=== PATIENT | female | born 1970 | race Caucasian/White ===

== ENCOUNTER → 2017-09-09 | Outpatient (CLI) | payer OTHER ==
[~2017-09-09] MED LIST: ASPI325T47 PO
== END | disposition home or self-care (01) ==
LOC: C.PAPS 11:09
PROVIDERS: ATTEND Obstetrics & Gynecology
DX: Z12.4 Encounter for screening for malignant neoplasm of cervix (principal)

== ENCOUNTER 2020-07-26 17:16 | Inpatient (IN) ==
--- OUTSIDE RECORDS SUMMARY | 2020-07-26 17:18 | External Medical Summary | Continuity of Care Document ---
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) Right lower quadrant pain (789.03) (R10.31) Allergies and Adverse Reactions Amoxil TABS (Allergy) Penicillins (Allergy) Bee sting (Allergy) Medications Wellbutrin Emilio AVILEZ Refills: 0 Procedures History of Tonsillectomy Status: Complet ed History of Section Low Transverse Status: Completed History of Hysteroscopy With Endometrial Ablation Status: Completed History of tubal ligation bilateral Stat us: Completed History of wisdom tooth extraction Statu s: Completed History of Laparoscopic Excision Of Ectopic And Status: Completed Salpingectomy History of ankle surgery Status: Complet ed Immunizations Immunizations not documented Family History Sister Family history of malignant neoplasm of cervix (V16.49) (Z80 .49) Status: Active Social History - Smoking Status Smokes tobacco daily Plan of Treatment Planned Observations Planned Goals not documented Results No Known Results Results not documented Encounters Appointment; ROXY MARIE, Ultrasound 22-Dec-2018 15:30 Encounter Diagnosis: Problem not documented Appointment; Princess Stanley M.D. 17-Dec-2018 9:45 Encounter Diagnosis: Problem not documented
[2020-07-26] MEDS ORDERED: MoRPHine SULFATE 4 MG/ML 1 ML CARP\\VIAL IV STA (17:58)
[2020-07-26 18:24] LABS: Basophils # (auto) 0.02 K/uL (0-0.2); Basophils % (auto) 0.1 %; Eosinophils # (auto) 0.13 K/uL (0-0.5); Eosinophils % (auto) 0.7 %; Hematocrit (blood only) 45.7 % (37-47); Hemoglobin 14.8 g/dL (12.0-16.0); Immature Granulocytes # (auto) 0.07 K/uL (0.00-0.02); Immature Granulocytes % (auto) 0.4 %; Lymphocytes % (auto) 14.1 %; Mean Corpuscular Hemoglobin 28.9 pg (25-34); Mean Corpuscular Hgb Conc 32.4 g/dL (32-36); Mean Corpuscular Volume 89.3 fL (80-100); Mean Platelet Volume 10.7 fL (7.4-10.4); Monocytes # (auto) 0.88 K/uL (0.11-0.59); Neutrophils # (auto) 14.16 K/uL (1.4-6.5); Neutrophils % (auto) 79.7 %; Platelet Count 272 K/uL (130-400); RDW Coefficient of Variation 15.7 % (11.5-14.5); RDW Standard Deviation 50.9 fL (36.4-46.3); Red Blood Count 5.12 M/uL (4.2-5.4); White Blood Count 17.76 K/uL (4.8-10.8)
[2020-07-26 18:38] LABS: Albumin Level 3.6 gm/dl (3.4-5.0); BUN Creatinine Ratio 9.1 (10-20); Calcium 9.4 mg/dl (8.5-10.1); Creatinine Clr Calc Pharmacy 112.6 ml/min; Est GFR (Non-African American) 87.2; Potassium 3.7 mmol/L (3.5-5.1)
[2020-07-26 18:40] LABS: Albumin Globulin Ratio 0.8 (0.9-2); Bilirubin,Total 0.5 mg/dl (0.2-1); Globulin 4.5 gm/dl (2.5-4.0); Total Protein 8.1 gm/dl (6.4-8.2)
[2020-07-26 18:47] LABS: Pregnancy Test, Serum Negative (Negative)
[2020-07-26] MEDS ORDERED: ONDANSETRON INJ 2 MG/ML 2 ML VIAL ONE (19:07)
[2020-07-26] MEDS ORDERED: ONDANSETRON INJ 2 MG/ML 2 ML VIAL IV STA (19:11)
--- NOTE | 2020-07-26 19:20 | Ultrasound Report ---
ULTRASOUND OF THE PELVIS CLINICAL HISTORY: Pelvic pain. Reported history of endometrial ablation. COMPARISON STUDY: Pelvic CT dated 04/10/2015. TECHNIQUE: Real-time, grayscale, and color flow sonography of the pelvis is performed both transabdom inally and endovaginally. Images are reviewed in the transverse and longitudinal planes. The endovagi nal examination is performed for better assessment of the adnexa. FINDINGS: Uterus: The uterus is normal in size and echotexture, measuring 9.0 x 4.1 x 4.4 cm. Endometrium: The endometrium is not well visualized. There is trace fluid within the endocervical can al. 2 small cystic foci are located adjacent to the endometrium and measure up to 1.2 cm. Ovaries: The ovaries not visualized on the transabdominal or endovaginal imaging secondary to bowel g as. Pelvis: There is no free fluid in the cul-de-sac. No concerning adnexal lesion is seen. Intraluminal debris is noted in the bladder. IMPRESSION: 1. Intraluminal debris is noted in the bladder. Correlation with urinalysis will be required. 2. There are small cystic foci identified along the course of the endometrium and the endometrium its elf is not well assessed. These findings are likely related to the reported history of endometrial ab lation. 3. The ovaries were not visualized. 4. No adnexal abnormality is identified. ACT 112: Negative or not required by law. Electronically signed by: Mehdi Miranda M.D. 07/26/2020 7:19 PM
--- NOTE | 2020-07-26 19:29 | Emergency Department Note ---
History of Present Illness General Chief complaint: Urinary Symptoms Stated complaint: LOWER ABD PAIN Time Seen by Provider: 07/26/20 17:43 Source: patient Mode of arrival: ambulatory Limitations: no limitations History of Present Illness Provider complaint: Lower abdominal pain Maximum Pain Intensity: 8 This is a 50-year-old female who presents to the ED with a chief complaint that she has not been able to void since 2:00. She also reports that she has some pain with urination. She has had some lower abdominal pain that she describes as cramps for about 4 days. She was seen by her PCP at [facility] earlier today and had a normal urinalysis. The patient denies any fevers, nausea or vomiting. Denies any vaginal discharge or bleeding. Symptoms are worse with movement. Home Medications Home Medications Medication Instructions Recorded Confirmed Type No Known Home Medications 07/26/20 07/26/20 History Allergies Allergy/AdvReac Type Severity Reaction Status Date / Time amoxicillin Allergy Unknown Unknown Verified 07/26/20 18:44 Penicillins AdvReac Mild Nausea/Vomi Verified 07/26/20 18:44 ting Past Med/Surg History Medical History Migraine Family History Other Thyroid disease Social History Smoking Status: Current every day smoker Tobacco Type: Cigarettes Feels Safe at Home: Yes Review of Systems A total of 10 systems reviewed and were otherwise negative Physical Exam Vital Signs Vital Signs - 24 hr 07/26/20 17:18 07/26/20 19:02 Temperature 37.6 C H Temperature Source Oral Pulse Rate 102 H Pulse Rate [Right Finger] 98 H Pulse Rhythm [Right Finger] Regular Pulse Strength [Right Finger] Normal Respiratory Rate 20 20 Respiratory Effort / Characteristics Non-Labored Non-Labored Respiratory Depth Normal Normal Blood Pressure 157/84 H Blood Pressure [Right Arm] 130/80 Blood Pressure Mean 108 Blood Pressure Mean [Right Arm] 96 Blood Pressure Position [Right Arm] Sitting Pulse Oximetry 99 99 Oxygen Delivery Method Room Air Room Air Sepsis Recent Fever Within 48 Hours No Sepsis New/Unexplained Change in Mental Status N/A Sepsis Action Taken by Nursing No Action Required CONSTITUTIONAL/VITAL SIGNS: Reviewed / noted above. GENERAL: Non-toxic in appearance. INTEGUMENTARY: Warm, dry, and [place]. HEAD: Normocephalic. EYES: without scleral icterus or trauma. ENT/OROPHARYNX: clear and moist. LYMPHADENOPATHY/NECK: Is supple without lymphadenopathy or meningismus. RESPIRATORY: Lungs clear and equal. CARDIOVASCULAR: Regular rate and rhythm. GI/ABDOMEN: Soft and tender in the pelvic area bilaterally. No organomegaly or pulsatile mass. No rebound or guarding. Normal bowel sounds. EXTREMITIES: Warm and well perfused. BACK: No CVA tenderness. NEUROLOGICAL: Intact without focal deficits. PSYCHIATRIC: normal affect. MUSCULOSKELETAL: Normally developed with good muscle tone. TRIAGE NURSING DOCUMENTATION REVIEWED. Course Administered Medications Discontinued Medications Ioversol (Ioversol 100ml) 93 ml IV ONCE ONE Stop: 07/26/20 19:43 Last Admin: 07/26/20 19:42 Dose: 93 ml Documented by: [id number] Morphine Sulfate (Morphine Sulfate 4 Mg/Ml 1 Ml Carp\Vial) 4 mg IV NOW STA Stop: 07/26/20 17:59 Last Admin: 07/26/20 18:21 Dose: 4 mg Documented by: [id number] Ondansetron HCl (Ondansetron Inj 2 Mg/Ml 2 Ml Vial) Confirm Administered Dose 4 mg .ROUTE .STK-MED ONE Stop: 07/26/20 19:08 Last Admin: 07/26/20 19:12 Dose: Not Given Documented by: [id number] Ondansetron HCl (Ondansetron Inj 2 Mg/Ml 2 Ml Vial) 4 mg IV NOW STA Stop: 07/26/20 19:12 Last Admin: 07/26/20 19:12 Dose: 4 mg Documented by: [id number] Medical Decision Making Differential Diagnosis Differential considered: pancreatitis, hepatitis, acute cholecystitis, AAA, UTI, pyelonephritis, kidney stones, appendicitis, diverticulitis, shingles, bowel obstruction, mesenteric ischemia, intussusception,hernia Medical Records Attestation: I reviewed the patient's medical records. Home Medications Current Medication List: was personally reviewed by me Laboratory Data Attestation: I reviewed the patient's lab results. Result diagrams: 07/26/20 18:10 07/26/20 18:10 Lab Results 07/26/20 07/26/20 07/26/20 Range/Units 18:10 18:10 18:10 WBC 17.76 H (4.8-10.8) K/uL RBC 5.12 (4.2-5.4) M/uL Hgb 14.8 (12.0-16.0) g/dL Hct 45.7 (37-47) % MCV 89.3 (80-100) fL MCH 28.9 (25-34) pg MCHC 32.4 (32-36) g/dL RDW Std Deviation 50.9 H (36.4-46.3) fL RDW Coeff of Chinmay 15.7 H (11.5-14.5) % Plt Count 272 (130-400) K/uL MPV 10.7 H (7.4-10.4) fL Immature Gran % (Auto) 0.4 % Neut % (Auto) 79.7 % Lymph % (Auto) 14.1 % [place] % (Auto) 5.0 % Eos % (Auto) 0.7 % Baso % (Auto) 0.1 % Neut # (Auto) 14.16 H (1.4-6.5) K/uL Lymph # (Auto) 2.50 (1.2-3.4) K/uL [place] # (Auto) 0.88 H (0.11-0.59) K/uL Eos # (Auto) 0.13 (0-0.5) K/uL Baso # (Auto) 0.02 (0-0.2) K/uL Immature Gran # (Auto) 0.07 H (0.00-0.02) K/uL Sodium 140 (136-145) mmol/L Potassium 3.7 (3.5-5.1) mmol/L Chloride 107 (98-107) mmol/L Carbon Dioxide 29 (21-32) mmol/L Anion Gap 4.0 (3-11) BUN 7 (7-18) mg/dl Creatinine 0.80 (0.6-1.2) mg/dl Est Cr Clr Drug Dosing 112.6 ml/min Est GFR ( Amer) 101.0 Est GFR (Non-Af Amer) 87.2 BUN/Creatinine Ratio 9.1 L (10-20) Glucose 90 (70-99) mg/dl Calcium 9.4 (8.5-10.1) mg/dl Total Bilirubin 0.5 (0.2-1) mg/dl AST 19 (15-37) U/L ALT 28 (12-78) U/L Alkaline Phosphatase 143 H (45-117) U/L Total Protein 8.1 (6.4-8.2) gm/dl Albumin 3.6 (3.4-5.0) gm/dl Globulin 4.5 H (2.5-4.0) gm/dl Albumin/Globulin Ratio 0.8 L (0.9-2) Lipase 78 (73-393) U/L HCG, Qual Negative (Negative) Imaging Data Radiologist's Impression: IMPRESSION: 1. Intraluminal debris is noted in the bladder. Correlation with urinalysis will be required. 2. There are small cystic foci identified along the course of the endometrium and the endometrium itself is not well assessed. These findings are likely related to the reported history of endometrial ablation. 3. The ovaries were not visualized. 4. No adnexal abnormality is identified. IMPRESSION: 1. There is moderate diverticulosis of the sigmoid colon with evidence of acute sigmoid diverticulitis. 2. Punctate foci of extraluminal gas in the left pelvis indicate perforation. No organized fluid collection is seen to suggest abscess. 3. Hepatomegaly and severe hepatic steatosis. 4. Additional findings as above. MDM Narrative Patient presents with lower abdominal pain as described above. CT scan suggests acute diverticulitis with microperforation. I did speak with Dr. Hoover. He recommends IV antibiotics and medicine admission. Surgical service will follow. I spoke with the hospitalist. The patient was treated with IV Zosyn. Nausea vomiting was her only allergy. Impression & Plan Acute diverticulitis Discharge Plan Visit Data Chief Complaint: Urinary Symptoms Stated Complaint: LOWER ABD PAIN ED Provider: Cristobal Gregory Discharge Problem: Acute diverticulitis Patient Disposition: Being Evaluated by Hospitalist Forms Stand Alone Forms: My [place] Prescriptions Prescriptions: No Action No Known Home Medications RF: 0 Referrals Referrals: Tashi Reyes MD [Primary Care Provider] -
[2020-07-26] MEDS ORDERED: IOVERSOL 100ml IV ONE (19:42)
--- NOTE | 2020-07-26 19:45 | CT Scan Report ---
CT SCAN OF THE ABDOMEN AND PELVIS WITH IV CONTRAST CLINICAL HISTORY: Lower abdominal pain. COMPARISON STUDY: Abdominal CT dated 04/10/2015. Pelvic ultrasound dated 07/26/2020. TECHNIQUE: Following the IV administration of 94 cc of Optiray 320, CT scan of the abdomen and pelvi s is performed from the lung bases to the proximal femora. Images are reviewed in the axial, sagittal , and coronal planes. IV contrast was administered without complication. A dose lowering technique wa s utilized adhering to the principles of ALARA. CT DOSE: 1787.99 mGy.cm FINDINGS: Lung bases: The heart is normal in size and without pericardial effusion. The lung bases are clear. Liver: The contrast-enhanced liver is enlarged, measuring 22.2 cm in length. The liver demonstrates d iffusely diminished attenuation consistent with severe hepatic steatosis. Fatty sparing is seen adjac ent to gallbladder fossa. There is no intrahepatic biliary ductal dilatation. The hepatic veins and p ortal veins are patent. Gallbladder: Mildly distended but otherwise normal in appearance. Spleen: Normal in size and attenuation. Pancreas: Mildly atrophic and grossly unremarkable. Adrenal glands: Unremarkable. Kidneys: The contrast enhanced kidneys are normal in size and without hydronephrosis. The kidneys enh ance symmetrically. Abdominal vasculature: The abdominal aorta is normal in course and caliber noting mild atheroscleroti c calcification. Bowel: There is moderate diverticulosis of the sigmoid colon. There is colonic wall thickening with p ericolonic inflammation and trace fluid seen involving the proximal sigmoid consistent with acute div erticulitis. No organized fluid collection is seen to suggest abscess. No bowel obstruction is identi fied. The appendix is well-visualized and normal. Peritoneum: There are punctate foci of extraluminal gas in the left pelvis (axial image #395). No abd ominal ascites is seen. There is a fat-containing umbilical hernia. Lymphadenopathy: None. Pelvic viscera: The bladder is mildly distended but otherwise normal in appearance. The uterus and ad nexa are normal as imaged. Skeletal structures: No lytic or blastic lesions are seen. IMPRESSION: 1. There is moderate diverticulosis of the sigmoid colon with evidence of acute sigmoid diverticuliti s. 2. Punctate foci of extraluminal gas in the left pelvis indicate perforation. No organized fluid jacob ection is seen to suggest abscess. 3. Hepatomegaly and severe hepatic steatosis. 4. Additional findings as above. ACT 112: Negative or not required by law. Electronically signed by: Mehdi Miranda M.D. 07/26/2020 7:44 PM
[2020-07-26] MEDS ORDERED: PIPERACILL/TAZOBAC CONSULT ACTIVE PRN (19:59)
[2020-07-26] MEDS ORDERED: PIPERACILLIN/TAZOBACTAM 4.5 GM/120 ML BAG IV ONE (19:59)
[2020-07-26] MEDS ORDERED: ACETAMINOPHEN 1,000 MG/100 ML VIAL IV STA (20:12)
[2020-07-26 20:20] LABS: Appearance Urine Clear (Clear); Bacteria Urine Automated Negative (Negative); Bilirubin Urine Negative (Negative); Blood Urine Trace (Negative); Cast Urine Automated 0 /lpf (0-5); Color Urine Yellow; Epithelial Cell Urine Auto 0-5 /lpf (0-5); Glucose Urine UA Negative (Negative); Ketones Urine Negative (Negative); Leukocyte Esterase Urine Negative (Negative); Nitrite Urine Negative (Negative); Protein Urine Negative (Negative); RBC Urine Automated 0-4 /hpf (0-4); Urobilinogen Urine Negative (Negative); WBC Urine Automated 0 /hpf (0-5); pH Urine 7.5 (4.5-7.5)
[2020-07-26] MEDS ORDERED: NORMOSOL-R 1,000 ML IV ONE (20:21)
[2020-07-26 20:40] LABS: Magnesium 2.2 mg/dl (1.8-2.4)
[2020-07-26] MEDS ORDERED: KETOROLAC 30 MG/ML VIAL IV ONE (21:03)
[2020-07-26] MEDS ORDERED: KETOROLAC 30 MG/ML VIAL ONE (21:04)
--- NOTE | 2020-07-26 21:54 | History & Physical Report ---
Date of Service July 26, 2020 Assessment & Plan (1) Sepsis: Secondary to complicated diverticulitis Ongoing tobacco abuse Medical telemetry Cultures, Zosyn Bowel rest Surgery consult Re: Complicated diverticulitis (ER provider already in touch with Dr. Hoover.) Outpatient GI consult after 1 month for scheduling of outpatient colonoscopy. Nicotine patch PRN DVT prophylaxis. Lovenox subcu Full code Text document was generated using SnapYeti voice recognition software. It may contain grammatical or spelling errors. Kindly contact undersigned for clarification of any documentation item in question. History of Present Illness Chief Complaint: Abdominal pain Primary Care Provider: Dr. Graham (new PCP as per patient) History obtained from patient and records. Medical history significant for mood disorder, ongoing tobacco abuse. Last confinement 2014 under Orthopedics service for right ankle surgery. 4 days history of crampy lower abdominal pain radiating to the back without fever, chills somewhat worse with motion. Some constipation. May have had intermittent episodes in the last year. No consultations done. Patient seen at PCPs office today. Gynecologic imaging recommended. Patient brought by to ER for worsening symptoms. IV Zosyn given at the ER for complicated diverticulitis. Medical History as above No prior colonoscopies. Surgical History : Tonsillectomy/adenectomy, uterine ablation, sinus section, dental surgery Family History : Pancreatic cancer, diabetes, high blood pressure; no colon cancer Personal/Social history : one pack daily, no EtOH intake, factory employee Allergies Allergy/AdvReac Type Severity Reaction Status Date / Time amoxicillin Allergy Unknown Unknown Verified 07/26/20 18:44 Penicillins AdvReac Mild Nausea/Vomi Verified 07/26/20 18:44 ting Home Medications Home Medications Medication Instructions Recorded Confirmed Type No Known Home Medications 07/26/20 07/26/20 History Past Med/Surg History Medical History Migraine Family History Other Thyroid disease Social History Smoking Status: Current every day smoker Tobacco Type: Cigarettes Cigarettes Per Day: 20; Tobacco Cessation Education Requested by Patient: No Hx Alcohol Use: No Hx Substance Use: No Preferred Language: Yakut Communication Ability: Effective Document Preparation Specialist Required: No Beliefs That Will Affect Care: None Current Living Situation: Spouse Feels Safe at Home: Yes Assistive Devices: Glasses Review of Systems Review of Systems: As per HPI, all 10 systems reviewed, all other ROS negative Physical Exam Physical Exam: GENERAL: uncomfortable, obese, no respiratory distress SKIN: Normal color, warm HEENT: [place] palpebral conjunctivae, no ptosis, dry buccal mucosa NECK : Supple, short neck, no tenderness CHEST : CTA, no tenderness HEART : RRR, no obvious murmurs ABDOMEN: Some distention, hypogastric tenderness EXTREMITIES : Minimal LE swelling, no LE tenderness, no other conspicuous deformities noted NEUROLOGIC : Coherent, no facial asymmetry, no other gross focality Results & Data Results & Data ([facility]) Vital Signs (Past 12 Hours) Vital Signs Temp Pulse Pulse Resp BP BP Pulse Ox 07/26/20 20:08 107 H 20 117/83 97 07/26/20 19:02 98 H 20 130/80 99 07/26/20 17:18 37.6 C H 102 H 20 157/84 H 99 Laboratory Results Laboratory Results WBC 17.76 K/uL (4.8-10.8) H 07/26/20 18:10 RBC 5.12 M/uL (4.2-5.4) 07/26/20 18:10 Hgb 14.8 g/dL (12.0-16.0) 07/26/20 18:10 Hct 45.7 % (37-47) 07/26/20 18:10 MCV 89.3 fL (80-100) 07/26/20 18:10 MCH 28.9 pg (25-34) 07/26/20 18:10 MCHC 32.4 g/dL (32-36) 07/26/20 18:10 RDW Std Deviation 50.9 fL (36.4-46.3) H 07/26/20 18:10 RDW Coeff of Chinmay 15.7 % (11.5-14.5) H 07/26/20 18:10 Plt Count 272 K/uL (130-400) 07/26/20 18:10 MPV 10.7 fL (7.4-10.4) H 07/26/20 18:10 Immature Gran % (Auto) 0.4 % 07/26/20 18:10 Neut % (Auto) 79.7 % 07/26/20 18:10 Lymph % (Auto) 14.1 % 07/26/20 18:10 Burt % (Auto) 5.0 % 07/26/20 18:10 Eos % (Auto) 0.7 % 07/26/20 18:10 Baso % (Auto) 0.1 % 07/26/20 18:10 Neut # (Auto) 14.16 K/uL (1.4-6.5) H 07/26/20 18:10 Lymph # (Auto) 2.50 K/uL (1.2-3.4) 07/26/20 18:10 Burt # (Auto) 0.88 K/uL (0.11-0.59) H 07/26/20 18:10 Eos # (Auto) 0.13 K/uL (0-0.5) 07/26/20 18:10 Baso # (Auto) 0.02 K/uL (0-0.2) 07/26/20 18:10 Immature Gran # (Auto) 0.07 K/uL (0.00-0.02) H 07/26/20 18:10 Sodium 140 mmol/L (136-145) 07/26/20 18:10 Potassium 3.7 mmol/L (3.5-5.1) 07/26/20 18:10 Chloride 107 mmol/L (98-107) 07/26/20 18:10 Carbon Dioxide 29 mmol/L (21-32) 07/26/20 18:10 Anion Gap 4.0 (3-11) 07/26/20 18:10 BUN 7 mg/dl (7-18) 07/26/20 18:10 Creatinine 0.80 mg/dl (0.6-1.2) 07/26/20 18:10 Est Cr Clr Drug Dosing 112.6 ml/min 07/26/20 18:10 Est GFR ( Amer) 101.0 07/26/20 18:10 Est GFR (Non-Af Amer) 87.2 07/26/20 18:10 BUN/Creatinine Ratio 9.1 (10-20) L 07/26/20 18:10 Glucose 90 mg/dl (70-99) 07/26/20 18:10 Lactate 1.1 mmol/L (0.4-2.0) 07/26/20 20:31 Calcium 9.4 mg/dl (8.5-10.1) 07/26/20 18:10 Magnesium 2.2 mg/dl (1.8-2.4) 07/26/20 18:10 Total Bilirubin 0.5 mg/dl (0.2-1) 07/26/20 18:10 AST 19 U/L (15-37) 07/26/20 18:10 ALT 28 U/L (12-78) 07/26/20 18:10 Alkaline Phosphatase 143 U/L (45-117) H 07/26/20 18:10 Total Protein 8.1 gm/dl (6.4-8.2) 07/26/20 18:10 Albumin 3.6 gm/dl (3.4-5.0) 07/26/20 18:10 Globulin 4.5 gm/dl (2.5-4.0) H 07/26/20 18:10 Albumin/Globulin Ratio 0.8 (0.9-2) L 07/26/20 18:10 Lipase 78 U/L (73-393) 07/26/20 18:10 HCG, Qual Negative (Negative) 07/26/20 18:10 Urine Color Yellow 07/26/20 20:00 Urine Appearance Clear (Clear) 07/26/20 20:00 Urine pH 7.5 (4.5-7.5) 07/26/20 20:00 Ur Specific [place] 1.020 (1.000-1.030) 07/26/20 20:00 Urine Protein Negative (Negative) 07/26/20 20:00 Urine Glucose (UA) Negative (Negative) 07/26/20 20:00 Urine Ketones Negative (Negative) 07/26/20 20:00 Urine Blood Trace (Negative) H 07/26/20 20:00 Urine Nitrite Negative (Negative) 07/26/20 20:00 Urine Bilirubin Negative (Negative) 07/26/20 20:00 Urine Urobilinogen Negative (Negative) 07/26/20 20:00 Ur Leukocyte Esterase Negative (Negative) 07/26/20 20:00 Urine WBC (Auto) 0 /hpf (0-5) 07/26/20 20:00 Urine RBC (Auto) 0-4 /hpf (0-4) 07/26/20 20:00 U Hyaline Cast (Auto) 0 /lpf (0-5) 07/26/20 20:00 U Epithel Cells (Auto) 0-5 /lpf (0-5) 07/26/20 20:00 Urine Bacteria (Auto) Negative (Negative) 07/26/20 20:00 POC Ur Test NEG (NEG) 07/26/20 20:[address] abdomen pelvis: 1. There is moderate diverticulosis of the sigmoid colon with evidence of acute sigmoid diverticulitis. 2. Punctate foci of extraluminal gas in the left pelvis indicate perforation. No organized fluid collection is seen to suggest abscess. 3. Hepatomegaly and severe hepatic steatosis. Chest x-ray as per my interpretation no congestion
[2020-07-27] MEDS ORDERED: MoRPHine SULFATE 4 MG/ML 1 ML CARP\\VIAL IV PRN ×2 (00:19→05:31)
[2020-07-27] MEDS ORDERED: LORazepam 0.5 MG/1 ML VIAL IV PRN (00:19)
[2020-07-27] MEDS ORDERED: PROMETHAZINE HCL 12.5 MG in SODIUM CHLORIDE 0.9% 50 ML IV PRN (00:19)
[2020-07-27] MEDS: D5W AND LACTATED RINGERS 1,000 ML IV SCH ×2 (00:56→13:33)
[2020-07-27] MEDS: PIPERACILLIN/TAZOBACTAM 4.5 GM in DEXTROSE 5% 100 ML IV SCH ×3 (02:00→18:45)
[2020-07-27] MEDS ORDERED: KETOROLAC 30 MG/ML VIAL IV STA (05:28)
[2020-07-27] MEDS ORDERED: MoRPHine SULFATE 10 MG/ML CARP/VIAL IV PRN (05:36)
[2020-07-27] MEDS: KETOROLAC TROMETHAMINE 15 MG/ML VIAL IV PRN ×3 (05:41→20:36)
[2020-07-27 07:20] LABS: Basophils # (auto) 0.02 K/uL (0-0.2); Basophils % (auto) 0.2 %; Eosinophils % (auto) 0.8 %; Hematocrit (blood only) 41.8 % (37-47); Hemoglobin 13.5 g/dL (12.0-16.0); Immature Granulocytes # (auto) 0.04 K/uL (0.00-0.02); Immature Granulocytes % (auto) 0.3 %; Lymphocytes # (auto) 1.65 K/uL (1.2-3.4); Lymphocytes % (auto) 12.8 %; Mean Corpuscular Hemoglobin 28.7 pg (25-34); Mean Corpuscular Hgb Conc 32.3 g/dL (32-36); Mean Corpuscular Volume 88.7 fL (80-100); Mean Platelet Volume 10.6 fL (7.4-10.4); Monocytes # (auto) 0.84 K/uL (0.11-0.59); Monocytes % (auto) 6.5 %; Neutrophils # (auto) 10.23 K/uL (1.4-6.5); Neutrophils % (auto) 79.4 %; Platelet Count 226 K/uL (130-400); RDW Coefficient of Variation 15.7 % (11.5-14.5); RDW Standard Deviation 50.8 fL (36.4-46.3); Red Blood Count 4.71 M/uL (4.2-5.4); White Blood Count 12.88 K/uL (4.8-10.8)
[2020-07-27 07:31] LABS: INR 1.1 (0.9-1.1); Prothrombin Time 11.1 Seconds (9.0-12.0)
[2020-07-27] MEDS: ACETAMINOPHEN 1,000 MG/100 ML VIAL IV PRN ×2 (07:31→17:04)
--- NOTE | 2020-07-27 07:40 | XRay Report ---
XR chest 1V portable HISTORY: sepsis COMPARISON: Chest 12/28/2014. FINDINGS: The lungs are clear. Cardiac silhouette is normal in size. No pleural effusions. No pneumot horax. IMPRESSION: No acute process. ACT 112: Negative or not required by law. Electronically signed by: Alfie Hobbs M.D. 07/27/2020 7:39 AM
[2020-07-27 07:45] LABS: BUN Creatinine Ratio 8.7 (10-20); Creatinine Clr Calc Pharmacy 109.6 ml/min; Est GFR (African American) 99.5; Est GFR (Non-African American) 85.9; Potassium 3.6 mmol/L (3.5-5.1)
[2020-07-27] MEDS: ENOXAPARIN INJ 40 MG/0.4 ML SYR SQ SCH (08:31)
--- NOTE | 2020-07-27 11:37 | Surgery Consultation ---
Date of Consultation July 27, 2020 Assessment & Plan (1) Acute diverticulitis: This patient's exam and CAT scan are consistent with acute diverticulitis of the sigmoid colon. There are small areas of extraluminal air including probable microperforation but there is no evidence of abscess. I agree with conservative management with bowel rest and intravenous antibiotics. She has no evidence of diffuse peritonitis or free rupture. I do not feel there is any need for immediate surgical intervention. The ideal situation would be to get her through this acute episode and then for her to have a colonoscopy in 2 to 3 months. She could then have a discussion about elective resection. History of Present Illness Reason for Consultation: Lower abdominal pain Requesting Physician: Gabriela Swann MD Attending Physician: Gabriela Swann MD History of Present Illness To see I have been asked by Dr. Swann this 50-year-old female who presented to the emergency room with a complaint of lower abdominal pain. The patient states that for the last year she has had intermittent abdominal discomfort that she describes in the suprapubic area and across her lower abdomen while most of the time the right side predominates over the left. The pain was usually self- limited lasting for approximately an hour. Over the last 4 days however the severity of the pain escalated to a level much more severe than her previous episodes. She has not had any associated nausea or vomiting. She denies fever. Her bowels have been moving although she frequently requires stool softeners or laxatives for help. There is been no melena or hematochezia. She denies dysuria, hematuria and pneumaturia. She states that she was admitted about 4 years ago overnight for an episode of diverticulitis. She has never had a colonoscopy. There is no family history of lower GI disorders. Allergies Allergy/AdvReac Type Severity Reaction Status Date / Time amoxicillin Allergy Unknown Unknown Verified 07/26/20 18:44 Penicillins AdvReac Mild Nausea/Vomi Verified 07/26/20 18:44 ting Home Medications Home Medications Medication Instructions Recorded Confirmed Type No Known Home Medications 07/26/20 07/26/20 History Patient History Medical History (Updated 07/27/20 @ 05:42 by Jeremy Pandya MD) Migraine Surgical History (Updated 07/27/20 @ 11:36 by Jovany Tovar MD) deliv due to previous difficult deliv, deliv, curr hospitaliz X 2 Status post ORIF of fracture of ankle right Family History Other Thyroid disease Social History Smoking Status: Current every day smoker Tobacco Type: Cigarettes Cigarettes Per Day: 20; Tobacco Cessation Education Requested by Patient: No Hx Alcohol Use: No Hx Substance Use: No Preferred Language: Wolof Communication Ability: Effective Hplc Chemist Required: No Beliefs That Will Affect Care: None Current Living Situation: Spouse Feels Safe at Home: Yes Assistive Devices: Glasses Review of Systems Review of Systems: All systems reviewed & are unremarkable except as noted in HPI & below Physical Exam Constitutional: no acute distress Neck: trachea midline Respiratory: normal respiratory effort, lungs clear to auscultation Cardiovascular: Rate/Rhythm: regular rate and regular rhythm Gastrointestinal (Abdomen): Inspection/Auscultation: normal bowel sounds; abdomen not distended Percussion/Palpation: + abdomen tender (Tender to moderate palpation in the lower midline above the pubic bone and mostly to the left with some less significant tenderness towards the right side) and abdomen soft Skin: no rashes, warm and dry Lymphatic: no cervical lymphadenopathy Results & Data ([facility]) Vital Signs (Past 12 Hours) Vital Signs Temp Pulse Pulse Resp BP Pulse Ox 07/27/20 07:40 75 07/27/20 07:17 36.7 C 82 18 93/63 L 95 07/27/20 03:00 36.5 C 94 H 20 92/57 L 96 07/27/20 01:19 96 H 07/27/20 00:00 36.8 C 97 H 18 95/56 L 99 07/26/20 23:40 36.9 C Laboratory Results 07/27/20 07/27/20 07/27/20 Range/Units 06:50 06:50 06:50 WBC 12.88 H (4.8-10.8) K/uL RBC 4.71 (4.2-5.4) M/uL Hgb 13.5 (12.0-16.0) g/dL Hct 41.8 (37-47) % MCV 88.7 (80-100) fL MCH 28.7 (25-34) pg MCHC 32.3 (32-36) g/dL RDW Std Deviation 50.8 H (36.4-46.3) fL RDW Coeff of Chinmay 15.7 H (11.5-14.5) % Plt Count 226 (130-400) K/uL MPV 10.6 H (7.4-10.4) fL Immature Gran % (Auto) 0.3 % Neut % (Auto) 79.4 % Lymph % (Auto) 12.8 % Owen % (Auto) 6.5 % Eos % (Auto) 0.8 % Baso % (Auto) 0.2 % Neut # (Auto) 10.23 H (1.4-6.5) K/uL Lymph # (Auto) 1.65 (1.2-3.4) K/uL Owen # (Auto) 0.84 H (0.11-0.59) K/uL Eos # (Auto) 0.10 (0-0.5) K/uL Baso # (Auto) 0.02 (0-0.2) K/uL Immature Gran # (Auto) 0.04 H (0.00-0.02) K/uL PT 11.1 (9.0-12.0) Seconds INR 1.1 (0.9-1.1) Sodium 140 (136-145) mmol/L Potassium 3.6 (3.5-5.1) mmol/L Chloride 108 H (98-107) mmol/L Carbon Dioxide 26 (21-32) mmol/L Anion Gap 6.0 (3-11) BUN 7 (7-18) mg/dl Creatinine 0.81 (0.6-1.2) mg/dl Est Cr Clr Drug Dosing 109.6 ml/min Est GFR ( Amer) 99.5 Est GFR (Non-Af Amer) 85.9 BUN/Creatinine Ratio 8.7 L (10-20) Glucose 111 H (70-99) mg/dl Lactate (0.4-2.0) mmol/L Calcium 9.0 (8.5-10.1) mg/dl Magnesium (1.8-2.4) mg/dl Total Bilirubin (0.2-1) mg/dl AST (15-37) U/L ALT (12-78) U/L Alkaline Phosphatase (45-117) U/L Total Protein (6.4-8.2) gm/dl Albumin (3.4-5.0) gm/dl Globulin (2.5-4.0) gm/dl Albumin/Globulin Ratio (0.9-2) Lipase (73-393) U/L HCG, Qual (Negative) Urine Color Urine Appearance (Clear) Urine pH (4.5-7.5) Ur Specific [place] (1.000-1.030) Urine Protein (Negative) Urine Glucose (UA) (Negative) Urine Ketones (Negative) Urine Blood (Negative) Urine Nitrite (Negative) Urine Bilirubin (Negative) Urine Urobilinogen (Negative) Ur Leukocyte Esterase (Negative) Urine WBC (Auto) (0-5) /hpf Urine RBC (Auto) (0-4) /hpf U Hyaline Cast (Auto) (0-5) /lpf U Epithel Cells (Auto) (0-5) /lpf Urine Bacteria (Auto) (Negative) POC Ur Test (NEG) 07/26/20 07/26/20 07/26/20 Range/Units 20:31 20:00 20:00 WBC (4.8-10.8) K/uL RBC (4.2-5.4) M/uL Hgb (12.0-16.0) g/dL Hct (37-47) % MCV (80-100) fL MCH (25-34) pg MCHC (32-36) g/dL RDW Std Deviation (36.4-46.3) fL RDW Coeff of Chinmay (11.5-14.5) % Plt Count (130-400) K/uL MPV (7.4-10.4) fL Immature Gran % (Auto) % Neut % (Auto) % Lymph % (Auto) % Owen % (Auto) % Eos % (Auto) % Baso % (Auto) % Neut # (Auto) (1.4-6.5) K/uL Lymph # (Auto) (1.2-3.4) K/uL Owen # (Auto) (0.11-0.59) K/uL Eos # (Auto) (0-0.5) K/uL Baso # (Auto) (0-0.2) K/uL Immature Gran # (Auto) (0.00-0.02) K/uL PT (9.0-12.0) Seconds INR (0.9-1.1) Sodium (136-145) mmol/L Potassium (3.5-5.1) mmol/L Chloride (98-107) mmol/L Carbon Dioxide (21-32) mmol/L Anion Gap (3-11) BUN (7-18) mg/dl Creatinine (0.6-1.2) mg/dl Est Cr Clr Drug Dosing ml/min Est GFR ( Amer) Est GFR (Non-Af Amer) BUN/Creatinine Ratio (10-20) Glucose (70-99) mg/dl Lactate 1.1 (0.4-2.0) mmol/L Calcium (8.5-10.1) mg/dl Magnesium (1.8-2.4) mg/dl Total Bilirubin (0.2-1) mg/dl AST (15-37) U/L ALT (12-78) U/L Alkaline Phosphatase (45-117) U/L Total Protein (6.4-8.2) gm/dl Albumin (3.4-5.0) gm/dl Globulin (2.5-4.0) gm/dl Albumin/Globulin Ratio (0.9-2) Lipase (73-393) U/L HCG, Qual (Negative) Urine Color Yellow Urine Appearance Clear (Clear) Urine pH 7.5 (4.5-7.5) Ur Specific [place] 1.020 (1.000-1.030) Urine Protein Negative (Negative) Urine Glucose (UA) Negative (Negative) Urine Ketones Negative (Negative) Urine Blood Trace H (Negative) Urine Nitrite Negative (Negative) Urine Bilirubin Negative (Negative) Urine Urobilinogen Negative (Negative) Ur Leukocyte Esterase Negative (Negative) Urine WBC (Auto) 0 (0-5) /hpf Urine RBC (Auto) 0-4 (0-4) /hpf U Hyaline Cast (Auto) 0 (0-5) /lpf U Epithel Cells (Auto) 0-5 (0-5) /lpf Urine Bacteria (Auto) Negative (Negative) POC Ur Test NEG (NEG) 07/26/20 07/26/20 07/26/20 Range/Units 18:10 18:10 18:10 WBC 17.76 H (4.8-10.8) K/uL RBC 5.12 (4.2-5.4) M/uL Hgb 14.8 (12.0-16.0) g/dL Hct 45.7 (37-47) % MCV 89.3 (80-100) fL MCH 28.9 (25-34) pg MCHC 32.4 (32-36) g/dL RDW Std Deviation 50.9 H (36.4-46.3) fL RDW Coeff of Chinmay 15.7 H (11.5-14.5) % Plt Count 272 (130-400) K/uL MPV 10.7 H (7.4-10.4) fL Immature Gran % (Auto) 0.4 % Neut % (Auto) 79.7 % Lymph % (Auto) 14.1 % Owen % (Auto) 5.0 % Eos % (Auto) 0.7 % Baso % (Auto) 0.1 % Neut # (Auto) 14.16 H (1.4-6.5) K/uL Lymph # (Auto) 2.50 (1.2-3.4) K/uL Owen # (Auto) 0.88 H (0.11-0.59) K/uL Eos # (Auto) 0.13 (0-0.5) K/uL Baso # (Auto) 0.02 (0-0.2) K/uL Immature Gran # (Auto) 0.07 H (0.00-0.02) K/uL PT (9.0-12.0) Seconds INR (0.9-1.1) Sodium 140 (136-145) mmol/L Potassium 3.7 (3.5-5.1) mmol/L Chloride 107 (98-107) mmol/L Carbon Dioxide 29 (21-32) mmol/L Anion Gap 4.0 (3-11) BUN 7 (7-18) mg/dl Creatinine 0.80 (0.6-1.2) mg/dl Est Cr Clr Drug Dosing 112.6 ml/min Est GFR ( Amer) 101.0 Est GFR (Non-Af Amer) 87.2 BUN/Creatinine Ratio 9.1 L (10-20) Glucose 90 (70-99) mg/dl Lactate (0.4-2.0) mmol/L Calcium 9.4 (8.5-10.1) mg/dl Magnesium 2.2 (1.8-2.4) mg/dl Total Bilirubin 0.5 (0.2-1) mg/dl AST 19 (15-37) U/L ALT 28 (12-78) U/L Alkaline Phosphatase 143 H (45-117) U/L Total Protein 8.1 (6.4-8.2) gm/dl Albumin 3.6 (3.4-5.0) gm/dl Globulin 4.5 H (2.5-4.0) gm/dl Albumin/Globulin Ratio 0.8 L (0.9-2) Lipase 78 (73-393) U/L HCG, Qual Negative (Negative) Urine Color Urine Appearance (Clear) Urine pH (4.5-7.5) Ur Specific [place] (1.000-1.030) Urine Protein (Negative) Urine Glucose (UA) (Negative) Urine Ketones (Negative) Urine Blood (Negative) Urine Nitrite (Negative) Urine Bilirubin (Negative) Urine Urobilinogen (Negative) Ur Leukocyte Esterase (Negative) Urine WBC (Auto) (0-5) /hpf Urine RBC (Auto) (0-4) /hpf U Hyaline Cast (Auto) (0-5) /lpf U Epithel Cells (Auto) (0-5) /lpf Urine Bacteria (Auto) (Negative) POC Ur Test (NEG) Diagnostic Findings CT SCAN OF THE ABDOMEN AND PELVIS WITH IV CONTRAST CLINICAL HISTORY: Lower abdominal pain. COMPARISON STUDY: Abdominal CT dated 04/10/2015. Pelvic ultrasound dated 07/26/2020. TECHNIQUE: Following the IV administration of 94 cc of Optiray 320, CT scan of the abdomen and pelvis is performed from the lung bases to the proximal femora. Images are reviewed in the axial, sagittal, and coronal planes. IV contrast was administered without complication. A dose lowering technique was utilized adhering to the principles of ALARA. CT DOSE: 1787.99 mGy.cm FINDINGS: Lung bases: The heart is normal in size and without pericardial effusion. The lung bases are clear. Liver: The contrast-enhanced liver is enlarged, measuring 22.2 cm in length. The liver demonstrates diffusely diminished attenuation consistent with severe hepatic steatosis. Fatty sparing is seen adjacent to gallbladder fossa. There is no intrahepatic biliary ductal dilatation. The hepatic veins and portal veins are patent. Gallbladder: Mildly distended but otherwise normal in appearance. Spleen: Normal in size and attenuation. Pancreas: Mildly atrophic and grossly unremarkable. Adrenal glands: Unremarkable. Kidneys: The contrast enhanced kidneys are normal in size and without hydronephrosis. The kidneys enhance symmetrically. Abdominal vasculature: The abdominal aorta is normal in course and caliber noting mild atherosclerotic calcification. Bowel: There is moderate diverticulosis of the sigmoid colon. There is colonic wall thickening with pericolonic inflammation and trace fluid seen involving the proximal sigmoid consistent with acute diverticulitis. No organized fluid collection is seen to suggest abscess. No bowel obstruction is identified. The a ppendix is well-visualized and normal. Peritoneum: There are punctate foci of extraluminal gas in the left pelvis (axial image #395). No abdominal ascites is seen. There is a fat-containing umbilical hernia. Lymphadenopathy: None. Pelvic viscera: The bladder is mildly distended but otherwise normal in appearance. The uterus and adnexa are normal as imaged. Skeletal structures: No lytic or blastic lesions are seen. IMPRESSION: 1. There is moderate diverticulosis of the sigmoid colon with evidence of acute sigmoid diverticulitis. 2. Punctate foci of extraluminal gas in the left pelvis indicate perforation. No organized fluid collection is seen to suggest abscess. 3. Hepatomegaly and severe hepatic steatosis. 4. Additional findings as above. ULTRASOUND OF THE PELVIS CLINICAL HISTORY: Pelvic pain. Reported history of endometrial ablation. COMPARISON STUDY: Pelvic CT dated 04/10/2015. TECHNIQUE: Real-time, grayscale, and color flow sonography of the pelvis is performed both transabdominally and endovaginally. Images are reviewed in the transverse and longitudinal planes. The endovaginal examination is performed for better assessment of the adnexa. FINDINGS: Uterus: The uterus is normal in size and echotexture, measuring 9.0 x 4.1 x 4.4 cm. Endometrium: The endometrium is not well visualized. There is trace fluid within the endocervical canal. 2 small cystic foci are located adjacent to the endometrium and measure up to 1.2 cm. Ovaries: The ovaries not visualized on the transabdominal or endovaginal imaging secondary to bowel gas. Pelvis: There is no free fluid in the cul-de-sac. No concerning adnexal lesion is seen. Intraluminal debris is noted in the bladder. IMPRESSION: 1. Intraluminal debris is noted in the bladder. Correlation with urinalysis will be required. 2. There are small cystic foci identified along the course of the endometrium and the endometrium itself is not well assessed. These findings are likely related to the reported history of endometrial ablation. 3. The ovaries were not visualized. 4. No adnexal abnormality is identified. XR chest 1V portable HISTORY: sepsis COMPARISON: Chest 12/28/2014. FINDINGS: The lungs are clear. Cardiac silhouette is normal in size. No pleural effusions. No pneumothorax. IMPRESSION: No acute process.
--- NOTE | 2020-07-27 12:18 | Hospitalist Progress Note ---
Date of Service July 27, 2020 Assessment & Plan (1) Sepsis: Secondary to complicated diverticulitis Ongoing tobacco use Continue zosyn Leukocytosis improving Blood cultures in lab Continue IVF Bowel rest. Continue NPO but allow ice chips and sips if tolerated Surgery evaluation noted Imaging studies reviewed. Counselled patient on need to quit smoking Nicotine patch prn Will need GI follow up outpatient DVT ppx- lovenox sq Admission and Anticipated Discharge Date Admission Date: July 26, 2020 Subjective Patient seen and examined Reports abd pain still present, crampy but much improved about 4-5/10 No nausea, vomiting, diarrhea Reports feeling hungry and will like diet Denied any chest pain, palpitation, SOB, cough Denied any dysuria, freq, urgency, hematuria Physical Exam Constitutional: + well hydrated; no acute distress Eyes: PERRL, conjunctivae normal, anicteric sclerae ENMT: external ear and nose normal, oropharynx normal Respiratory: normal respiratory effort, lungs clear to auscultation Cardiovascular: RRR, no murmur, no edema Gastrointestinal (Abdomen): Inspection/Auscultation: abdomen normal to inspection and normal bowel sounds; abdomen not distended Percussion/Palpation: abdomen soft; no guarding and abdomen not rigid LLQ and suprapubic tenderness Musculoskeletal: no cyanosis or clubbing, extremities motor strength 5/5 Neurologic: PERRL, EOMI, accommodation nl, no face palsy, no dysarthria Psychiatric: A+Ox3, euthymic affect Results & Data Results & Data ([facility]) Vital Signs (Past 12 Hours) Vital Signs Temp Pulse Pulse Resp BP Pulse Ox 07/27/20 11:32 36.7 C 81 18 102/68 96 07/27/20 07:40 75 07/27/20 07:17 36.7 C 82 18 93/63 L 95 07/27/20 03:00 36.5 C 94 H 20 92/57 L 96 07/27/20 01:19 96 H Laboratory Results Laboratory Results - last 24 hr 07/26/20 07/26/20 07/26/20 18:10 18:10 18:10 WBC 17.76 H RBC 5.12 Hgb 14.8 Hct 45.7 MCV 89.3 MCH 28.9 MCHC 32.4 RDW Std Deviation 50.9 H RDW Coeff of Chinmay 15.7 H Plt Count 272 MPV 10.7 H Immature Gran % (Auto) 0.4 Neut % (Auto) 79.7 Lymph % (Auto) 14.1 [place] % (Auto) 5.0 Eos % (Auto) 0.7 Baso % (Auto) 0.1 Neut # (Auto) 14.16 H Lymph # (Auto) 2.50 [place] # (Auto) 0.88 H Eos # (Auto) 0.13 Baso # (Auto) 0.02 Immature Gran # (Auto) 0.07 H PT INR Sodium 140 Potassium 3.7 Chloride 107 Carbon Dioxide 29 Anion Gap 4.0 BUN 7 Creatinine 0.80 Est Cr Clr Drug Dosing 112.6 Est GFR ( Amer) 101.0 Est GFR (Non-Af Amer) 87.2 BUN/Creatinine Ratio 9.1 L Glucose 90 Lactate Calcium 9.4 Magnesium 2.2 Total Bilirubin 0.5 AST 19 ALT 28 Alkaline Phosphatase 143 H Total Protein 8.1 Albumin 3.6 Globulin 4.5 H Albumin/Globulin Ratio 0.8 L Lipase 78 HCG, Qual Negative Urine Color Urine Appearance Urine pH Ur Specific [place] Urine Protein Urine Glucose (UA) Urine Ketones Urine Blood Urine Nitrite Urine Bilirubin Urine Urobilinogen Ur Leukocyte Esterase Urine WBC (Auto) Urine RBC (Auto) U Hyaline Cast (Auto) U Epithel Cells (Auto) Urine Bacteria (Auto) POC Ur Test 07/26/20 07/26/20 07/26/20 20:00 20:00 20:31 WBC RBC Hgb Hct MCV MCH MCHC RDW Std Deviation RDW Coeff of Chinmay Plt Count MPV Immature Gran % (Auto) Neut % (Auto) Lymph % (Auto) [place] % (Auto) Eos % (Auto) Baso % (Auto) Neut # (Auto) Lymph # (Auto) [place] # (Auto) Eos # (Auto) Baso # (Auto) Immature Gran # (Auto) PT INR Sodium Potassium Chloride Carbon Dioxide Anion Gap BUN Creatinine Est Cr Clr Drug Dosing Est GFR ( Amer) Est GFR (Non-Af Amer) BUN/Creatinine Ratio Glucose Lactate 1.1 Calcium Magnesium Total Bilirubin AST ALT Alkaline Phosphatase Total Protein Albumin Globulin Albumin/Globulin Ratio Lipase HCG, Qual Urine Color Yellow Urine Appearance Clear Urine pH 7.5 Ur Specific [place] 1.020 Urine Protein Negative Urine Glucose (UA) Negative Urine Ketones Negative Urine Blood Trace H Urine Nitrite Negative Urine Bilirubin Negative Urine Urobilinogen Negative Ur Leukocyte Esterase Negative Urine WBC (Auto) 0 Urine RBC (Auto) 0-4 U Hyaline Cast (Auto) 0 U Epithel Cells (Auto) 0-5 Urine Bacteria (Auto) Negative POC Ur Test NEG 07/27/20 07/27/20 07/27/20 06:50 06:50 06:50 WBC 12.88 H RBC 4.71 Hgb 13.5 Hct 41.8 MCV 88.7 MCH 28.7 MCHC 32.3 RDW Std Deviation 50.8 H RDW Coeff of Chinmay 15.7 H Plt Count 226 MPV 10.6 H Immature Gran % (Auto) 0.3 Neut % (Auto) 79.4 Lymph % (Auto) 12.8 [place] % (Auto) 6.5 Eos % (Auto) 0.8 Baso % (Auto) 0.2 Neut # (Auto) 10.23 H Lymph # (Auto) 1.65 [place] # (Auto) 0.84 H Eos # (Auto) 0.10 Baso # (Auto) 0.02 Immature Gran # (Auto) 0.04 H PT 11.1 INR 1.1 Sodium 140 Potassium 3.6 Chloride 108 H Carbon Dioxide 26 Anion Gap 6.0 BUN 7 Creatinine 0.81 Est Cr Clr Drug Dosing 109.6 Est GFR ( Amer) 99.5 Est GFR (Non-Af Amer) 85.9 BUN/Creatinine Ratio 8.7 L Glucose 111 H Lactate Calcium 9.0 Magnesium Total Bilirubin AST ALT Alkaline Phosphatase Total Protein Albumin Globulin Albumin/Globulin Ratio Lipase HCG, Qual Urine Color Urine Appearance Urine pH Ur Specific [place] Urine Protein Urine Glucose (UA) Urine Ketones Urine Blood Urine Nitrite Urine Bilirubin Urine Urobilinogen Ur Leukocyte Esterase Urine WBC (Auto) Urine RBC (Auto) U Hyaline Cast (Auto) U Epithel Cells (Auto) Urine Bacteria (Auto) POC Ur Test Diagnostic Findings CT Abd/Pelvis: FINDINGS: Lung bases: The heart is normal in size and without pericardial effusion. The lung bases are clear. Liver: The contrast-enhanced liver is enlarged, measuring 22.2 cm in length. The liver demonstrates diffusely diminished attenuation consistent with severe hepatic steatosis. Fatty sparing is seen adjacent to gallbladder fossa. There is no intrahepatic biliary ductal dilatation. The hepatic veins and portal veins are patent. Gallbladder: Mildly distended but otherwise normal in appearance. Spleen: Normal in size and attenuation. Pancreas: Mildly atrophic and grossly unremarkable. Adrenal glands: Unremarkable. Kidneys: The contrast enhanced kidneys are normal in size and without hydronephrosis. The kidneys enhance symmetrically. Abdominal vasculature: The abdominal aorta is normal in course and caliber noting mild atherosclerotic calcification. Bowel: There is moderate diverticulosis of the sigmoid colon. There is colonic wall thickening with pericolonic inflammation and trace fluid seen involving the proximal sigmoid consistent with acute diverticulitis. No organized fluid collection is seen to suggest abscess. No bowel obstruction is identified. The appendix is well-visualized and normal. Peritoneum: There are punctate foci of extraluminal gas in the left pelvis (axial image #395). No abdominal ascites is seen. There is a fat-containing umbilical hernia. Lymphadenopathy: None. Pelvic viscera: The bladder is mildly distended but otherwise normal in appearance. The uterus and adnexa are normal as imaged. Skeletal structures: No lytic or blastic lesions are seen. IMPRESSION: 1. There is moderate diverticulosis of the sigmoid colon with evidence of acute sigmoid diverticulitis. 2. Punctate foci of extraluminal gas in the left pelvis indicate perforation. No organized fluid collection is seen to suggest abscess. 3. Hepatomegaly and severe hepatic steatosis. 4. Additional findings as above.
[2020-07-28] MEDS: D5W AND LACTATED RINGERS 1,000 ML IV SCH ×2 (02:41→17:01)
[2020-07-28] MEDS: PIPERACILLIN/TAZOBACTAM 4.5 GM in DEXTROSE 5% 100 ML IV SCH ×3 (02:41→18:06)
[2020-07-28] MEDS: KETOROLAC TROMETHAMINE 15 MG/ML VIAL IV PRN ×3 (02:43→21:52)
[2020-07-28 05:59] LABS: Hematocrit (blood only) 39.6 % (37-47); Hemoglobin 12.8 g/dL (12.0-16.0); Mean Corpuscular Hemoglobin 28.5 pg (25-34); Mean Corpuscular Hgb Conc 32.3 g/dL (32-36); Mean Corpuscular Volume 88.2 fL (80-100); Mean Platelet Volume 10.7 fL (7.4-10.4); Platelet Count 236 K/uL (130-400); RDW Coefficient of Variation 15.6 % (11.5-14.5); RDW Standard Deviation 50.3 fL (36.4-46.3); Red Blood Count 4.49 M/uL (4.2-5.4); White Blood Count 14.05 K/uL (4.8-10.8)
[2020-07-28 06:25] LABS: BUN Creatinine Ratio 10.6 (10-20); Calcium 9.2 mg/dl (8.5-10.1); Creatinine Clr Calc Pharmacy 119.8 ml/min; Est GFR (African American) 109.2; Est GFR (Non-African American) 94.3; Potassium 3.7 mmol/L (3.5-5.1)
[2020-07-28] MEDS: ENOXAPARIN INJ 40 MG/0.4 ML SYR SQ SCH (09:23)
--- NOTE | 2020-07-28 10:45 | Surgery Progress Note ---
Date of Service July 28, 2020 Assessment & Plan (1) Acute diverticulitis: Clinically improved today Recommend advancing to full liquid diet Consider continuing IV antibiotics for another day Will need colonoscopy in about 2 months after discharge No evidence of peritonitis or need for surgical intervention immediately. Admission and Anticipated Discharge Date Admission Date: July 26, 2020 Subjective Feels much better today Pain has decreased dramatically Denies nausea and vomiting Physical Exam Gastrointestinal (Abdomen): Inspection/Auscultation: normal bowel sounds; abdomen not distended Percussion/Palpation: + abdomen tender (Lower abdomen above the pubic bone and just to the left although it is much improved compared to yesterday) and abdomen soft Results & Data ([facility]) Vital Signs (Past 12 Hours) Vital Signs Temp Pulse Pulse Resp BP Pulse Ox 07/28/20 07:33 80 07/28/20 07:14 36.9 C 84 18 96/65 L 97 07/28/20 04:52 91 H 07/28/20 03:53 37.1 C 94 H 20 105/69 96 07/27/20 23:00 36.5 C 93 H 20 106/72 96 Laboratory Results 07/28/20 07/28/20 Range/Units 05:36 05:36 WBC 14.05 H (4.8-10.8) K/uL RBC 4.49 (4.2-5.4) M/uL Hgb 12.8 (12.0-16.0) g/dL Hct 39.6 (37-47) % MCV 88.2 (80-100) fL MCH 28.5 (25-34) pg MCHC 32.3 (32-36) g/dL RDW Std Deviation 50.3 H (36.4-46.3) fL RDW Coeff of Chinmay 15.6 H (11.5-14.5) % Plt Count 236 (130-400) K/uL MPV 10.7 H (7.4-10.4) fL Sodium 140 (136-145) mmol/L Potassium 3.7 (3.5-5.1) mmol/L Chloride 109 H (98-107) mmol/L Carbon Dioxide 26 (21-32) mmol/L Anion Gap 6.0 (3-11) BUN 8 (7-18) mg/dl Creatinine 0.75 (0.6-1.2) mg/dl Est Cr Clr Drug Dosing 119.8 ml/min Est GFR ( Amer) 109.2 Est GFR (Non-Af Amer) 94.3 BUN/Creatinine Ratio 10.6 (10-20) Glucose 112 H (70-99) mg/dl Calcium 9.2 (8.5-10.1) mg/dl
--- NOTE | 2020-07-28 11:16 | Hospitalist Progress Note ---
Date of Service July 28, 2020 Assessment & Plan (1) Sepsis: Secondary to complicated diverticulitis Improving Continue zosyn WBC increased from 12 -14 today Patient asking for food and will like to be discharged I discussed with patient that it won't be prudent to discharge at this point Blood cultures negative so far Continue IVF Considering significant improvement in abd pain, will start soft diet and monitor tolerance Counselled patient on need to quit smoking Nicotine patch prn Will need GI follow up outpatient DVT ppx- lovenox sq Admission and Anticipated Discharge Date Admission Date: July 26, 2020 Subjective Patient seen and examined. Reports significant improvement in abd pain. Denied nausea, vomiting Denied fevers, chills Denied chest pain, SOB, cough Denied dysuria,freq, urgency, hematuria Has a bowel movement earlier, soft brown Physical Exam Constitutional: + well hydrated; no acute distress Eyes: PERRL, conjunctivae normal, anicteric sclerae ENMT: external ear and nose normal, oropharynx normal Respiratory: normal respiratory effort, lungs clear to auscultation Cardiovascular: RRR, no murmur, no edema Gastrointestinal (Abdomen): Inspection/Auscultation: abdomen normal to inspection and normal bowel sounds; abdomen not distended Perc ussion/Palpation: abdomen soft; no guarding and abdomen not rigid Mild suprapubic tenderness (improved from yesterday) Musculoskeletal: no cyanosis or clubbing, extremities motor strength 5/5 Neurologic: PERRL, EOMI, accommodation nl, no face palsy, no dysarthria Psychiatric: A+Ox3, euthymic affect Results & Data Results & Data ([facility]) Vital Signs (Past 12 Hours) Vital Signs Temp Pulse Pulse Resp BP Pulse Ox 07/28/20 07:33 80 07/28/20 07:14 36.9 C 84 18 96/65 L 97 07/28/20 04:52 91 H 07/28/20 03:53 37.1 C 94 H 20 105/69 96 Laboratory Results Laboratory Results - last 24 hr 07/28/20 07/28/20 05:36 05:36 WBC 14.05 H RBC 4.49 Hgb 12.8 Hct 39.6 MCV 88.2 MCH 28.5 MCHC 32.3 RDW Std Deviation 50.3 H RDW Coeff of Chinmay 15.6 H Plt Count 236 MPV 10.7 H Sodium 140 Potassium 3.7 Chloride 109 H Carbon Dioxide 26 Anion Gap 6.0 BUN 8 Creatinine 0.75 Est Cr Clr Drug Dosing 119.8 Est GFR ( Amer) 109.2 Est GFR (Non-Af Amer) 94.3 BUN/Creatinine Ratio 10.6 Glucose 112 H Calcium 9.2
[2020-07-28] MEDS ORDERED: ACETAMINOPHEN 325 MG TAB PO PRN (16:13)
[2020-07-29] MEDS: PIPERACILLIN/TAZOBACTAM 4.5 GM in DEXTROSE 5% 100 ML IV SCH (02:18)
[2020-07-29 06:06] LABS: BUN Creatinine Ratio 11.9 (10-20); Calcium 8.6 mg/dl (8.5-10.1); Creatinine Clr Calc Pharmacy 147.2 ml/min; Est GFR (African American) 124.2; Est GFR (Non-African American) 107.2; Magnesium 2.2 mg/dl (1.8-2.4); Potassium 3.8 mmol/L (3.5-5.1)
[2020-07-29] MEDS: D5W AND LACTATED RINGERS 1,000 ML IV SCH (07:03)
[2020-07-29] MEDS: ENOXAPARIN INJ 40 MG/0.4 ML SYR SQ SCH (08:36)
--- NOTE | 2020-07-29 08:42 | Discharge Summary ---
Date of Service July 29, 2020 Admission HPI Per Admitting Provider History obtained from patient and records. Medical history significant for mood disorder, ongoing tobacco abuse. Last confinement 2014 under Orthopedics service for right ankle surgery. 4 days history of crampy lower abdominal pain radiating to the back without fever, chills somewhat worse with motion. Some constipation. May have had intermittent episodes in the last year. No consultations done. Patient seen at PCPs office today. Gynecologic imaging recommended. Patient brought by to ER for worsening symptoms. IV Zosyn given at the ER for complicated diverticulitis. Medical History as above No prior colonoscopies. Surgical History : Tonsillectomy/adenectomy, uterine ablation, sinus section, dental surgery Family History : Pancreatic cancer, diabetes, high blood pressure; no colon cancer Personal/Social history : one pack daily, no EtOH intake, factory employee Admission Exam Per Admitting Provider GENERAL: uncomfortable, obese, no respiratory distress SKIN: Normal color, warm HEENT: [place] palpebral conjunctivae, no ptosis, dry buccal mucosa NECK : Supple, short neck, no tenderness CHEST : CTA, no tenderness HEART : RRR, no obvious murmurs ABDOMEN: Some distention, hypogastric tenderness EXTREMITIES : Minimal LE swelling, no LE tenderness, no other conspicuous d eformities noted NEUROLOGIC : Coherent, no facial asymmetry, no other gross focality Principal Diagnosis Sepsis secondary to acute diverticulitis Discharge Exam Constitutional + well hydrated; no acute distress Eyes PERRL, conjunctivae normal, anicteric sclerae ENMT external ear and nose normal, oropharynx normal Respiratory normal respiratory effort, lungs clear to auscultation Cardiovascular RRR, no murmur, no edema Gastrointestinal (Abdomen) Inspection/Auscultation: abdomen normal to inspection and normal bowel sounds; abdomen not distended Percussion/Palpation: abdomen soft; abdomen nontender, no guarding and abdomen not rigid Musculoskeletal no cyanosis or clubbing, extremities motor strength 5/5 Neurologic PERRL, EOMI, accommodation nl, no face palsy, no dysarthria Psychiatric A+Ox3, euthymic affect Discharge Data Allergies Allergy/AdvReac Type Severity Reaction Status Date / Time amoxicillin Allergy Unknown Unknown Verified 07/26/20 18:44 Penicillins AdvReac Mild Nausea/Vomi Verified 07/26/20 18:44 ting Consultations 07/26/20 20:11 ED Decision to Admit Stat 07/27/20 00:19 Consult General Surgery Routine Ordered Studies 07/26/20 17:58 CT abd pelvis IV con only Stat Lung bases: The heart is normal in size and without pericardial effusion. The lung bases are clear. Liver: The contrast-enhanced liver is enlarged, measuring 22.2 cm in length. The liver demonstrates diffusely diminished attenuation consistent with severe hepatic steatosis. Fatty sparing is seen adjacent to gallbladder fossa. There is no intrahepatic biliary ductal dilatation. The hepatic veins and portal veins are patent. Gallbladder: Mildly distended but otherwise normal in appearance. Spleen: Normal in size and attenuation. Pancreas: Mildly atrophic and grossly unremarkable. Adrenal glands: Unremarkable. Kidneys: The contrast enhanced kidneys are normal in size and without hydronephrosis. The kidneys enhance symmetrically. Abdominal vasculature: The abdominal aorta is normal in course and caliber noting mild atherosclerotic calcification. Bowel: There is moderate diverticulosis of the sigmoid colon. There is colonic wall thickening with pericolonic inflammation and trace fluid seen involving the proximal sigmoid consistent with acute diverticulitis. No organized fluid collection is seen to suggest abscess. No bowel obstruction is identified. The appendix is well-visualized and normal. Peritoneum: There are punctate foci of extraluminal gas in the left pelvis (axial image #[id number]). No abdominal ascites is seen. There is a fat-containing umbilical hernia. Lymphadenopathy: None. Pelvic viscera: The bladder is mildly distended but otherwise normal in appearance. The uterus and adnexa are normal as imaged. Skeletal structures: No lytic or blastic lesions are seen. IMPRESSION: 1. There is moderate diverticulosis of the sigmoid colon with evidence of acute sigmoid diverticulitis. 2. Punctate foci of extraluminal gas in the left pelvis indicate perforation. No organized fluid collection is seen to suggest abscess. 3. Hepatomegaly and severe hepatic steatosis. 4. Additional findings as above. US pelvic complete Stat Uterus: The uterus is normal in size and echotexture, measuring 9.0 x 4.1 x 4.4 cm. Endometrium: The endometrium is not well visualized. There is trace fluid within the endocervical canal. 2 small cystic foci are located adjacent to the endometrium and measure up to 1.2 cm. Ovaries: The ovaries not visualized on the transabdominal or endovaginal imaging secondary to bowel gas. Pelvis: There is no free fluid in the cul-de-sac. No concerning adnexal lesion is seen. Intraluminal debris is noted in the bladder. IMPRESSION: 1. Intraluminal debris is noted in the bladder. Correlation with urinalysis will be required. 2. There are small cystic foci identified along the course of the endometrium and the endometrium itself is not well assessed. These findings are likely related to the reported history of endometrial ablation. 3. The ovaries were not visualized. 4. No adnexal abnormality is identified. 07/26/20 18:00 US transvaginal Stat Hospital Course (1) Sepsis: Secondary to complicated diverticulitis Improving CT abd/pelvis show acute sigmoid diverticulitis Blood cultures negative Was initially started on iv zosyn Managed with IVF Abdominal pain /suprapubic resolved Diet advanced to regular with good tolerance Pelvic USS show some intraluminal debris in bladder. No symptoms of UTI. UA unremarkable Discharged on po ciprofloxacin and metronidazole to complete therapy Need to follow up with GI for colonoscopy in 6-8 weeks Patient counselled extensively on need to quit smoking Total Time Total Time Spent Total Time Spent (In Minutes): 35 Total Time Includes: Examination of the Patient, Discharge Planning and Medication Reconciliation Discharge Plan Discharge Items Patient Disposition: Home - Self-Care Reason For Visit: SEPSIS Discharge Diagnosis: Sepsis secondary to acute diverticulitis Activity: Resume your previous activity Non-emergency contact: Primary Care Provider Call non-emergency contact if: you have any medication questions and your symptoms worsen Follow-up/Referrals: Tashi Reyes MD [Primary Care Provider] - (Date & Time 08/02/2020 10:20 AM Provider Polina Thompson MD Department General Internal Medicine [facility] GI office will call you with an appointment for diverticulitis follow up. ) Diet: Regular Addtl Attending Provider Instructions: Servando. You came to the hospital complaining of severe abdominal pain. You were evaluated and found to have diverticulitis. You were treated with medications and your symptoms improved. Please continue to take the antibiotics (ciprofloxacin and metronidazole) as prescribed for the next 5 days to complete treatment. Please follow up with your Primary Doctor. You will need to follow up with the Hydrate Control Tender in office in about 6 weeks for possible colonoscopy. It was a pleasure taking care of you. Pending Studies at Discharge: No Stand-Alone Forms: My [employer], Work/School Release (Inpt), Smoking Cessation Medications and DC Order Prescriptions: New ciprofloxacin HCl 500 mg tablet 500 mg PO BID 5 Days Qty: 10 RF: 0 metronidazole 500 mg tablet 500 mg PO Q8H 5 Days Qty: 15 RF: 0 No Action No Known Home Medications RF: 0 Discharge Orders: Discharge Order (Routine); Ordered 07/29/20 Ordered By: Gabriela Gee/Other Patient Handouts: Discharge Instructions for ... Admission Data Admit Date/Time: 07/26/20 21:55 Attending Provider: Gabriela Swann I. Admit Provider: Jeremy Pandya Primary Care Provider: Tashi Reyes Other Providers: Jeremy Pandya ; Angelo Hoover Other Interventions: Discharge Summary Assessment (RN) Last Done: 07/29/20 09:06
--- NOTE | 2020-07-29 09:35 | Surgery Progress Note ---
Date of Service July 29, 2020 Assessment & Plan (1) Acute diverticulitis: Acute diverticulitis improving on conservative measures and tolerating soft diet. Suspect she will be discharged today on oral antibiotics. We will need to schedule a colonoscopy in about 6 to 8 weeks with gastroenterology. Admission and Anticipated Discharge Date Admission Date: July 26, 2020 Subjective Feels "awesome" today Is absolutely no pain Tolerated soft diet Denies nausea and vomiting Physical Exam Gastrointestinal (Abdomen): Inspection/Auscultation: normal bowel sounds; abdomen not distended Percussion/Palpation: abdomen soft; abdomen nontender Results & Data ([facility]) Vital Signs (Past 12 Hours) Vital Signs Temp Pulse Pulse Pulse Resp BP BP 07/29/20 09:06 36.5 C 85 90 17 109/75 126/62 07/29/20 08:14 36.5 C 85 17 109/75 07/29/20 08:00 82 07/29/20 04:52 82 07/29/20 04:00 36.7 C 83 18 120/81 07/28/20 23:00 36.7 C 90 18 126/62 Pulse Ox 07/29/20 09:06 97 07/29/20 08:14 97 07/29/20 08:00 07/29/20 04:52 07/29/20 04:00 98 07/28/20 23:00 96 Laboratory Results 07/29/20 Range/Units 05:17 Sodium 143 (136-145) mmol/L Potassium 3.8 (3.5-5.1) mmol/L Chloride 114 H (98-107) mmol/L Carbon Dioxide 26 (21-32) mmol/L Anion Gap 3.0 (3-11) BUN 7 (7-18) mg/dl Creatinine 0.61 (0.6-1.2) mg/dl Est Cr Clr Drug Dosing 147.2 ml/min Est GFR ( Amer) 124.2 Est GFR (Non-Af Amer) 107.2 BUN/Creatinine Ratio 11.9 (10-20) Glucose 104 H (70-99) mg/dl Calcium 8.6 (8.5-10.1) mg/dl Phosphorus 3.0 (2.5-4.9) mg/dl Magnesium 2.2 (1.8-2.4) mg/dl
== END 2020-07-29 09:40 | disposition home or self-care (01) | DRG 872 ==
LOC: ED 17:16 → 2W 21:55